=== PATIENT | male | born 1935 | race Caucasian/White ===

== ENCOUNTER 2021-02-04 08:06 | Inpatient (IN) | payer MEDICARE ==
[~2021-02-04] VITALS: Ht 177.8 cm; Wt 79.4 kg
[2021-02-04] MEDS ORDERED: XARELTO10 MG PO (09:07)
[2021-02-04] MEDS ORDERED: PRINIVIL20 MG PO (09:07)
[2021-02-04] MEDS ORDERED: LASIX20 MG PO (09:07)
[2021-02-04] MEDS ORDERED: METOPROLOL SUCC25 MG PO (09:07)
[2021-02-04] MEDS ORDERED: ASPIRIN81 MG PO (09:07)
[2021-02-04 09:09] LABS: BASOPHILS % 0.2 % (0.0-1.0); HEMATOCRIT 42.5 % (38.2-49.6); HEMOGLOBIN 13.7 g/dL (14.0-18.0); LYMPHOCYTES # (AUTO) 0.6 (1.0-3.2); LYMPHOCYTES % 12.2 % (18.0-39.1); MEAN CORPUSCULAR HEMOGLOBIN 27.9 pg (28-32); MEAN CORPUSCULAR HGB CONC 32.2 g/dL (31-35); MEAN CORPUSCULAR VOLUME 86.6 fL (81-99); MONOCYTES # (AUTO) 0.3 (0.2-0.8); MONOCYTES % 6.3 % (4.4-11.3); NEUTROPHILS # (AUTO) 3.8 (2.1-6.9); NEUTROPHILS % 79.6 % (38.7-80.0); PLATELET COUNT 133 x10e3/uL (140-360); RED BLOOD COUNT 4.91 x10e6/uL (4.3-5.7); RED CELL DISTRIBUTION WIDTH 16.1 % (11.7-14.4)
[2021-02-04 09:11] LABS: INR 1.01; PROTHROMBIN TIME 13.5 seconds (11.9-14.5)
[2021-02-04] MEDS ORDERED: METOPROLOL TARTRATE 50 MG TAB PO ONE (09:30)
[2021-02-04] MEDS ORDERED: FUROSEMIDE INJ 10 MG/ML 4 ML VIAL IV ONE (09:30)
[2021-02-04 09:31] LABS: ALBUMIN/GLOBULIN RATIO 0.8 (0.8-2.0); ANION GAP 18.3 mmol/L (8-16); CALCIUM 8.7 mg/dL (8.4-10.2); CREATININE, SERUM 1.55 mg/dL (0.72-1.25); POTASSIUM 4.3 mmol/L (3.5-5.1)
[2021-02-04] MEDS ORDERED: DEXAMETHASONE SOD PHOS 10 MG/1 ML VIAL IV ONE (10:00)
[2021-02-04 12:54] VITALS: BP 149/71
[2021-02-04 12:56] VITALS: BP 149/71
[2021-02-04 12:57] VITALS: BP 149/71
[2021-02-04] MEDS ORDERED: CASIRIVIMAB/IMDEVIMAB 10 ML in SODIUM CHLORIDE 0.9% 100 ML IV ONE (14:45)
[2021-02-04] MEDS ORDERED: REMDESIVIR 200MG 200 MG in SODIUM CHLORIDE 0.9% 100 ML IV ONE (15:30)
[2021-02-04 16:34] VITALS: BP 125/56
[2021-02-04 16:53] LABS: BASOPHILS % 0.2 % (0.0-1.0); HEMOGLOBIN 13.8 g/dL (14.0-18.0); LYMPHOCYTES # (AUTO) 0.3 (1.0-3.2); LYMPHOCYTES % 7.8 % (18.0-39.1); MEAN CORPUSCULAR HEMOGLOBIN 27.9 pg (28-32); MEAN CORPUSCULAR HGB CONC 32.9 g/dL (31-35); MONOCYTES # (AUTO) 0.1 (0.2-0.8); MONOCYTES % 3.2 % (4.4-11.3); NEUTROPHILS # (AUTO) 3.8 (2.1-6.9); PLATELET COUNT 130 x10e3/uL (140-360); RED BLOOD COUNT 4.94 x10e6/uL (4.3-5.7)
[2021-02-04] MEDS ORDERED: METOPROLOL TARTRATE 25 MG TAB PO ONE (17:00)
[2021-02-04 17:17] LABS: ALBUMIN/GLOBULIN RATIO 0.7 (0.8-2.0); ANION GAP 18.6 mmol/L (8-16); CALCIUM 8.7 mg/dL (8.4-10.2); CREATININE, SERUM 1.43 mg/dL (0.72-1.25); POTASSIUM 4.6 mmol/L (3.5-5.1)
[2021-02-04] MEDS: ASCORBIC ACID 500 MG TAB PO SCH (17:47)
[2021-02-04] MEDS: LISINOPRIL 20 MG TAB PO SCH (17:47)
[2021-02-04] MEDS: FUROSEMIDE INJ 10 MG/ML 4 ML VIAL IV SCH (17:47)
[2021-02-04] MEDS: RIVAROXABAN 10 MG TABLET PO SCH (18:09)
[2021-02-04] MEDS ORDERED: METOPROLOL TARTRATE INJ 1 MG/ML VIAL IV PRN (18:15)
[2021-02-04 20:00] VITALS: BP 135/85
[2021-02-04 20:38] LABS: LYMPHOCYTES % (MANUAL) 5 % (19-48); MONOCYTES % (MANUAL) 5 % (3.4-9.0); NEUTROPHILS % (MANUAL) 87 % (40-74); PLATELET ESTIMATE ADEQUATE; PLATELET MORPHOLOGY COMMENT FEW GIANT; RBC MORPHOLOGY COMMENT NORMAL
[2021-02-04 21:10] VITALS: BP 135/85
[2021-02-05] VITALS (8 sets, daily range): BP systolic 119–149; BP diastolic 66–91
[2021-02-05 05:00] LABS: BASOPHILS % 0.2 % (0.0-1.0); HEMATOCRIT 44.6 % (38.2-49.6); HEMOGLOBIN 14.4 g/dL (14.0-18.0); LYMPHOCYTES # (AUTO) 0.6 (1.0-3.2); LYMPHOCYTES % 10.8 % (18.0-39.1); MEAN CORPUSCULAR HGB CONC 32.3 g/dL (31-35); MEAN CORPUSCULAR VOLUME 86.8 fL (81-99); MONOCYTES # (AUTO) 0.4 (0.2-0.8); MONOCYTES % 6.7 % (4.4-11.3); NEUTROPHILS # (AUTO) 4.2 (2.1-6.9); NEUTROPHILS % 80.6 % (38.7-80.0); PLATELET COUNT 154 x10e3/uL (140-360); RED BLOOD COUNT 5.14 x10e6/uL (4.3-5.7); RED CELL DISTRIBUTION WIDTH 16.4 % (11.7-14.4)
[2021-02-05 05:26] LABS: ALBUMIN 2.9 g/dL (3.5-5.0); ALBUMIN/GLOBULIN RATIO 0.6 (0.8-2.0); ANION GAP 20.6 mmol/L (8-16); CALCIUM 8.6 mg/dL (8.4-10.2); CREATININE, SERUM 1.82 mg/dL (0.72-1.25); POTASSIUM 4.6 mmol/L (3.5-5.1)
[2021-02-05] MEDS: BENZONATATE 100 MG CAP PO PRN (06:30)
[2021-02-05] MEDS: FUROSEMIDE INJ 10 MG/ML 4 ML VIAL IV SCH ×2 (09:56→17:06)
[2021-02-05] MEDS: ASCORBIC ACID 500 MG TAB PO SCH ×2 (09:57→17:06)
[2021-02-05] MEDS: ASPIRIN 81 MG CHEW TAB PO SCH (09:57)
[2021-02-05] MEDS: LISINOPRIL 20 MG TAB PO SCH ×2 (09:57→17:06)
[2021-02-05] MEDS: ZINC SULFATE 220 MG CAP PO SCH (09:57)
[2021-02-05] MEDS: METOPROLOL SUCCINATE 25 MG TAB XL PO SCH (09:57)
[2021-02-05] MEDS: DEXAMETHASONE SOD PHOS 10 MG/1 ML VIAL IV SCH (10:17)
[2021-02-05] MEDS: CEFTRIAXONE 2 GM in SODIUM CHLORIDE 0.9% 100 ML IV SCH (10:17)
[2021-02-05] MEDS: REMDESIVIR 100MG 100 MG in SODIUM CHLORIDE 0.9% 100 ML IV SCH (14:05)
[2021-02-05] MEDS: RIVAROXABAN 10 MG TABLET PO SCH (17:06)
[2021-02-06] VITALS (11 sets, daily range): BP systolic 99–149; BP diastolic 62–99
[2021-02-06 04:56] LABS: BASOPHILS % 0.1 % (0.0-1.0); EOSINOPHILS % 0.1 % (0.0-6.0); HEMATOCRIT 42.4 % (38.2-49.6); LYMPHOCYTES # (AUTO) 0.6 (1.0-3.2); LYMPHOCYTES % 6.3 % (18.0-39.1); MEAN CORPUSCULAR HEMOGLOBIN 27.9 pg (28-32); MEAN CORPUSCULAR VOLUME 84.5 fL (81-99); MONOCYTES # (AUTO) 0.5 (0.2-0.8); MONOCYTES % 5.9 % (4.4-11.3); NEUTROPHILS # (AUTO) 7.9 (2.1-6.9); NEUTROPHILS % 86.7 % (38.7-80.0); PLATELET COUNT 177 x10e3/uL (140-360); RED BLOOD COUNT 5.02 x10e6/uL (4.3-5.7); RED CELL DISTRIBUTION WIDTH 16.4 % (11.7-14.4)
[2021-02-06 05:27] LABS: ALBUMIN 2.7 g/dL (3.5-5.0); ALBUMIN/GLOBULIN RATIO 0.6 (0.8-2.0); ANION GAP 19.2 mmol/L (8-16); CALCIUM 8.5 mg/dL (8.4-10.2); CREATININE, SERUM 1.91 mg/dL (0.72-1.25); POTASSIUM 4.2 mmol/L (3.5-5.1)
[2021-02-06] MEDS ORDERED: BREO ELLIPTA 21 EACH INH (05:48)
[2021-02-06] MEDS ORDERED: INCRUSE ELLI62.5 MCG INH (05:48)
[2021-02-06] MEDS: DEXAMETHASONE SOD PHOS 10 MG/1 ML VIAL IV SCH (06:00)
[2021-02-06] MEDS: BENZONATATE 100 MG CAP PO PRN (06:54)
[2021-02-06] MEDS: UMECLIDINIUM BROMIDE 62.5 MCG INH SCH (08:00)
[2021-02-06] MEDS: NON-FORMULARY MEDICATION (Fluticasone/Vilanterol (Breo Ellipta 200-25 Mcg INH) 1 INH) INH SCH (08:00)
[2021-02-06] MEDS: CEFTRIAXONE 2 GM in SODIUM CHLORIDE 0.9% 100 ML IV SCH (08:49)
[2021-02-06] MEDS: LISINOPRIL 20 MG TAB PO SCH ×2 (08:49→17:30)
[2021-02-06] MEDS: ASPIRIN 81 MG CHEW TAB PO SCH (08:49)
[2021-02-06] MEDS: FUROSEMIDE INJ 10 MG/ML 4 ML VIAL IV SCH (08:49)
[2021-02-06] MEDS: ASCORBIC ACID 500 MG TAB PO SCH ×2 (08:50→17:31)
[2021-02-06] MEDS: ZINC SULFATE 220 MG CAP PO SCH (08:50)
[2021-02-06] MEDS: METOPROLOL SUCCINATE 25 MG TAB XL PO SCH ×2 (08:50→17:31)
[2021-02-06] MEDS ORDERED: METOPROLOL TARTRATE INJ 1 MG/ML VIAL IV STA (10:28)
[2021-02-06] MEDS ORDERED: METOPROLOL TARTRATE INJ 1 MG/ML VIAL IV PRN (11:30)
[2021-02-06] MEDS: REMDESIVIR 100MG 100 MG in SODIUM CHLORIDE 0.9% 100 ML IV SCH (14:51)
[2021-02-06] MEDS ORDERED: RIVAROXABAN 10 MG TABLET PO SCH (17:00)
[2021-02-06] MEDS: RIVAROXABAN 15 MG TABLET PO SCH (17:31)
[2021-02-07] VITALS (8 sets, daily range): BP systolic 110–174; BP diastolic 62–98
[2021-02-07] MEDS: UMECLIDINIUM BROMIDE 62.5 MCG INH SCH (05:11)
[2021-02-07] MEDS: NON-FORMULARY MEDICATION (Fluticasone/Vilanterol (Breo Ellipta 200-25 Mcg INH) 1 INH) INH SCH (05:11)
[2021-02-07] MEDS: DEXAMETHASONE SOD PHOS 10 MG/1 ML VIAL IV SCH (05:45)
[2021-02-07 06:08] LABS: BASOPHILS % 0.2 % (0.0-1.0); HEMATOCRIT 44.8 % (38.2-49.6); HEMOGLOBIN 14.5 g/dL (14.0-18.0); LYMPHOCYTES # (AUTO) 0.5 (1.0-3.2); LYMPHOCYTES % 5.5 % (18.0-39.1); MEAN CORPUSCULAR HEMOGLOBIN 27.6 pg (28-32); MEAN CORPUSCULAR HGB CONC 32.4 g/dL (31-35); MEAN CORPUSCULAR VOLUME 85.3 fL (81-99); MONOCYTES # (AUTO) 0.5 (0.2-0.8); MONOCYTES % 5.8 % (4.4-11.3); PLATELET COUNT 225 x10e3/uL (140-360); RED BLOOD COUNT 5.25 x10e6/uL (4.3-5.7); RED CELL DISTRIBUTION WIDTH 16.5 % (11.7-14.4)
[2021-02-07 06:23] LABS: ALBUMIN 2.8 g/dL (3.5-5.0); ALBUMIN/GLOBULIN RATIO 0.6 (0.8-2.0); ANION GAP 18.1 mmol/L (8-16); CALCIUM 9.2 mg/dL (8.4-10.2); CREATININE, SERUM 1.77 mg/dL (0.72-1.25); MAGNESIUM 2.6 MG/DL (1.3-2.1); POTASSIUM 4.1 mmol/L (3.5-5.1)
[2021-02-07] MEDS: ASPIRIN 81 MG CHEW TAB PO SCH (09:26)
[2021-02-07] MEDS: CEFTRIAXONE 2 GM in SODIUM CHLORIDE 0.9% 100 ML IV SCH (09:26)
[2021-02-07] MEDS: LISINOPRIL 20 MG TAB PO SCH ×3 (09:26→17:01)
[2021-02-07] MEDS: ZINC SULFATE 220 MG CAP PO SCH (09:27)
[2021-02-07] MEDS: METOPROLOL SUCCINATE 25 MG TAB XL PO SCH ×2 (09:27→17:01)
[2021-02-07] MEDS: ASCORBIC ACID 500 MG TAB PO SCH ×2 (09:27→17:01)
[2021-02-07] MEDS: REMDESIVIR 100MG 100 MG in SODIUM CHLORIDE 0.9% 100 ML IV SCH (12:58)
[2021-02-07] MEDS ORDERED: AMIODARONE HCL 200 MG TAB PO NR (14:45)
[2021-02-07] MEDS ORDERED: AMIODARONE HCL 150 MG/100 ML BAG IV ONE (15:00)
[2021-02-07] MEDS: RIVAROXABAN 15 MG TABLET PO SCH (17:01)
[2021-02-07] MEDS: BENZONATATE 100 MG CAP PO PRN (22:04)
[2021-02-08 01:35] VITALS: BP 106/79
[2021-02-08] MEDS: BENZONATATE 100 MG CAP PO PRN ×3 (04:04→16:10)
[2021-02-08] MEDS: NON-FORMULARY MEDICATION (Fluticasone/Vilanterol (Breo Ellipta 200-25 Mcg INH) 1 INH) INH SCH (05:21)
[2021-02-08] MEDS: DEXAMETHASONE SOD PHOS 10 MG/1 ML VIAL IV SCH (05:21)
[2021-02-08] MEDS: UMECLIDINIUM BROMIDE 62.5 MCG INH SCH (05:21)
[2021-02-08 05:45] VITALS: BP 144/92
[2021-02-08 08:41] VITALS: BP 128/89
[2021-02-08] MEDS: CEFTRIAXONE 2 GM in SODIUM CHLORIDE 0.9% 100 ML IV SCH (09:12)
[2021-02-08] MEDS: ASPIRIN 81 MG CHEW TAB PO SCH (09:12)
[2021-02-08] MEDS: AMIODARONE HCL 200 MG TAB PO SCH (09:12)
[2021-02-08] MEDS: METOPROLOL SUCCINATE 25 MG TAB XL PO SCH ×2 (09:13→16:09)
[2021-02-08] MEDS: ZINC SULFATE 220 MG CAP PO SCH (09:13)
[2021-02-08] MEDS: LISINOPRIL 20 MG TAB PO SCH ×2 (09:13→16:09)
[2021-02-08] MEDS: ASCORBIC ACID 500 MG TAB PO SCH ×2 (09:13→16:08)
[2021-02-08 11:24] VITALS: BP 128/89
[2021-02-08] MEDS: REMDESIVIR 100MG 100 MG in SODIUM CHLORIDE 0.9% 100 ML IV SCH (14:06)
[2021-02-08] MEDS: RIVAROXABAN 15 MG TABLET PO SCH (16:08)
[2021-02-08 19:00] VITALS: BP 140/70
[2021-02-08 21:27] VITALS: BP 140/70
[2021-02-09] VITALS (8 sets, daily range): BP systolic 129–147; BP diastolic 79–97
[2021-02-09] MEDS: NON-FORMULARY MEDICATION (Fluticasone/Vilanterol (Breo Ellipta 200-25 Mcg INH) 1 INH) INH SCH ×2 (02:47→17:01)
[2021-02-09] MEDS: UMECLIDINIUM BROMIDE 62.5 MCG INH SCH ×2 (02:48→17:01)
[2021-02-09] MEDS: DEXAMETHASONE SOD PHOS 10 MG/1 ML VIAL IV SCH (05:12)
[2021-02-09] MEDS: AMIODARONE HCL 200 MG TAB PO SCH (08:35)
[2021-02-09] MEDS: ASPIRIN 81 MG CHEW TAB PO SCH (08:35)
[2021-02-09] MEDS: LISINOPRIL 20 MG TAB PO SCH ×2 (08:36→17:00)
[2021-02-09] MEDS: METOPROLOL SUCCINATE 25 MG TAB XL PO SCH ×2 (08:36→17:00)
[2021-02-09] MEDS: ASCORBIC ACID 500 MG TAB PO SCH ×2 (08:36→17:00)
[2021-02-09] MEDS: ZINC SULFATE 220 MG CAP PO SCH (08:36)
[2021-02-09] MEDS: LIDOCAINE 4% PATCH TP SCH (11:30)
[2021-02-09] MEDS: ACETAMINOPHEN 325 MG TAB PO PRN ×2 (11:30→21:02)
[2021-02-09] MEDS: VANCOMYCIN HCL 125 MG CAPSULE PO SCH ×3 (12:00→23:52)
[2021-02-09] MEDS: RIVAROXABAN 15 MG TABLET PO SCH (17:00)
[2021-02-09] MEDS: CHOLESTYRAMINE 4 GM PACKET PO SCH (17:01)
[2021-02-09] MEDS: BENZONATATE 100 MG CAP PO PRN (17:08)
[2021-02-10] VITALS (9 sets, daily range): BP systolic 123–150; BP diastolic 76–97
[2021-02-10] MEDS: VANCOMYCIN HCL 125 MG CAPSULE PO SCH (05:47)
[2021-02-10] MEDS: DEXAMETHASONE SOD PHOS 10 MG/1 ML VIAL IV SCH (05:47)
[2021-02-10 06:12] LABS: BASOPHILS % 0.3 % (0.0-1.0); HEMATOCRIT 44.7 % (38.2-49.6); HEMOGLOBIN 14.1 g/dL (14.0-18.0); LYMPHOCYTES # (AUTO) 0.8 (1.0-3.2); LYMPHOCYTES % 5.2 % (18.0-39.1); MEAN CORPUSCULAR HEMOGLOBIN 27.9 pg (28-32); MEAN CORPUSCULAR HGB CONC 31.5 g/dL (31-35); MEAN CORPUSCULAR VOLUME 88.5 fL (81-99); MONOCYTES # (AUTO) 1.1 (0.2-0.8); MONOCYTES % 7.3 % (4.4-11.3); NEUTROPHILS # (AUTO) 12.9 (2.1-6.9); NEUTROPHILS % 84.4 % (38.7-80.0); PLATELET COUNT 290 x10e3/uL (140-360); RED BLOOD COUNT 5.05 x10e6/uL (4.3-5.7); RED CELL DISTRIBUTION WIDTH 16.4 % (11.7-14.4)
[2021-02-10 06:39] LABS: ALBUMIN 2.8 g/dL (3.5-5.0); CALCIUM 8.8 mg/dL (8.4-10.2); CREATININE, SERUM 1.43 mg/dL (0.72-1.25)
[2021-02-10] MEDS: ASPIRIN 81 MG CHEW TAB PO SCH (08:37)
[2021-02-10] MEDS: AMIODARONE HCL 200 MG TAB PO SCH (08:37)
[2021-02-10] MEDS: LISINOPRIL 20 MG TAB PO SCH ×2 (08:38→17:12)
[2021-02-10] MEDS: ASCORBIC ACID 500 MG TAB PO SCH ×2 (08:39→17:13)
[2021-02-10] MEDS: METOPROLOL SUCCINATE 25 MG TAB XL PO SCH ×2 (08:39→17:13)
[2021-02-10] MEDS: ZINC SULFATE 220 MG CAP PO SCH (08:39)
[2021-02-10] MEDS: CHOLESTYRAMINE 4 GM PACKET PO SCH ×2 (08:39→17:13)
[2021-02-10] MEDS: BENZONATATE 100 MG CAP PO PRN (08:39)
[2021-02-10] MEDS: LIDOCAINE 4% PATCH TP SCH (08:39)
[2021-02-10] MEDS: RIVAROXABAN 15 MG TABLET PO SCH (17:13)
[2021-02-11 04:00] VITALS: BP 111/87
[2021-02-11 05:06] LABS: BASOPHILS % 0.2 % (0.0-1.0); EOSINOPHILS % 0.1 % (0.0-6.0); HEMATOCRIT 45.7 % (38.2-49.6); HEMOGLOBIN 14.8 g/dL (14.0-18.0); LYMPHOCYTES # (AUTO) 1.1 (1.0-3.2); LYMPHOCYTES % 6.6 % (18.0-39.1); MEAN CORPUSCULAR HEMOGLOBIN 28.1 pg (28-32); MEAN CORPUSCULAR HGB CONC 32.4 g/dL (31-35); MEAN CORPUSCULAR VOLUME 86.7 fL (81-99); NEUTROPHILS % 83.9 % (38.7-80.0); PLATELET COUNT 337 x10e3/uL (140-360); RED BLOOD COUNT 5.27 x10e6/uL (4.3-5.7); RED CELL DISTRIBUTION WIDTH 16.1 % (11.7-14.4)
[2021-02-11 05:20] LABS: ANION GAP 14.7 mmol/L (8-16); CALCIUM 8.8 mg/dL (8.4-10.2); CREATININE, SERUM 1.36 mg/dL (0.72-1.25); POTASSIUM 4.7 mmol/L (3.5-5.1)
[2021-02-11] MEDS: DEXAMETHASONE SOD PHOS 10 MG/1 ML VIAL IV SCH (05:22)
[2021-02-11] MEDS: NON-FORMULARY MEDICATION (Fluticasone/Vilanterol (Breo Ellipta 200-25 Mcg INH) 1 INH) INH SCH (06:00)
[2021-02-11] MEDS: UMECLIDINIUM BROMIDE 62.5 MCG INH SCH (06:00)
[2021-02-11] MEDS ORDERED: CEFEPIME 2 GM in SODIUM CHLORIDE 0.9% 100 ML IV SCH (09:00)
[2021-02-11] MEDS: LISINOPRIL 20 MG TAB PO SCH ×2 (09:11→17:21)
[2021-02-11] MEDS: ASPIRIN 81 MG CHEW TAB PO SCH (09:11)
[2021-02-11] MEDS: AMIODARONE HCL 200 MG TAB PO SCH (09:11)
[2021-02-11] MEDS: ZINC SULFATE 220 MG CAP PO SCH (09:12)
[2021-02-11] MEDS: METOPROLOL SUCCINATE 25 MG TAB XL PO SCH ×2 (09:12→17:22)
[2021-02-11] MEDS: LIDOCAINE 4% PATCH TP SCH (09:12)
[2021-02-11] MEDS: ASCORBIC ACID 500 MG TAB PO SCH ×2 (09:12→17:22)
[2021-02-11] MEDS: BENZONATATE 100 MG CAP PO PRN (09:14)
[2021-02-11 09:16] VITALS: BP 122/57
[2021-02-11] MEDS: CHOLESTYRAMINE 4 GM PACKET PO SCH ×2 (10:03→17:22)
[2021-02-11 11:42] VITALS: BP 116/77
[2021-02-11 16:13] VITALS: BP 121/78
[2021-02-11] MEDS ORDERED: DRONABINOL 2.5MG PO SCH (16:30)
[2021-02-11] MEDS: RIVAROXABAN 15 MG TABLET PO SCH (17:22)
[2021-02-11 19:16] VITALS: BP 119/87
[2021-02-11 20:00] VITALS: BP 119/87
== END 2021-02-11 23:13 | DRG 177 ==
LOC: ER 08:15 → ERHOLD 09:44 → IMCU 12:00
PROVIDERS: ADMIT Family Medicine; ATTEND Family Medicine
PROC: 8E0ZXY6 Isolation (ICD-10-PCS; principal; 2021-02-05)
PROC: XW033E5 Introduction of Remdesivir Anti-infective into Peripheral Vein, Percutaneous Approach, New Technology Group 5 (ICD-10-PCS; 2021-02-05)
DX: U07.1 COVID-19 (principal); J12.82 Pneumonia due to coronavirus disease 2019; J96.01 Acute respiratory failure with hypoxia; I50.33 Acute on chronic diastolic (congestive) heart failure; I50.43 Acute on chronic combined systolic (congestive) and diastolic (congestive) heart failure; I13.0 Hypertensive heart and chronic kidney disease with heart failure and stage 1 through stage 4 chronic kidney disease, or unspecified chronic kidney disease; I47.2 Ventricular tachycardia; Z79.01 Long term (current) use of anticoagulants; I25.10 Atherosclerotic heart disease of native coronary artery without angina pectoris; I11.0 Hypertensive heart disease with heart failure; Z95.1 Presence of aortocoronary bypass graft; N18.30 Chronic kidney disease, stage 3 unspecified; I48.0 Paroxysmal atrial fibrillation; R19.7 Diarrhea, unspecified
CPT/HCPCS: 36415; 51700; 71045; 80048; 80053; 82040; 83735; 83880; 84443; 84484; 85025; 85610; 87493; 93005; 93306; 97139; 99284; J0692; J0696; J1100; J1940; J7050; U0002

== ENCOUNTER 2021-02-16 14:44 | Inpatient (IN) | payer MEDICARE ==
[~2021-02-16] VITALS: Ht 177.8 cm; Wt 70.4 kg
[~2021-02-16 14:44] MED LIST: ASPIRIN81 MG PO; BREO ELLIPTA 21 EACH INH; INCRUSE ELLI62.5 MCG INH; LASIX20 MG PO; METOPROLOL SUCC25 MG PO; PRINIVIL20 MG PO; XARELTO10 MG PO
[2021-02-16 15:10] LABS: BASOPHILS # (AUTO) 0.1 (0.0-0.1); BASOPHILS % 0.4 % (0.0-1.0); EOSINOPHILS % 0.1 % (0.0-6.0); HEMATOCRIT 47.5 % (38.2-49.6); HEMOGLOBIN 14.7 g/dL (14.0-18.0); LYMPHOCYTES # (AUTO) 1.2 (1.0-3.2); MEAN CORPUSCULAR HEMOGLOBIN 28.1 pg (28-32); MEAN CORPUSCULAR HGB CONC 30.9 g/dL (31-35); MEAN CORPUSCULAR VOLUME 90.8 fL (81-99); MONOCYTES # (AUTO) 2.1 (0.2-0.8); MONOCYTES % 7.1 % (4.4-11.3); NEUTROPHILS # (AUTO) 25.3 (2.1-6.9); NEUTROPHILS % 84.7 % (38.7-80.0); PLATELET COUNT 293 x10e3/uL (140-360); RED BLOOD COUNT 5.23 x10e6/uL (4.3-5.7); RED CELL DISTRIBUTION WIDTH 16.1 % (11.7-14.4)
[2021-02-16 15:20] LABS: INR 0.97; PROTHROMBIN TIME 13.1 seconds (11.9-14.5)
[2021-02-16 15:21] LABS: PARTIAL THROMBOPLASTIN TIME 27.2 seconds (23.8-35.5)
[2021-02-16 15:26] LABS: ALBUMIN 2.9 g/dL (3.5-5.0); ALBUMIN/GLOBULIN RATIO 0.8 (0.8-2.0); ANION GAP 12.8 mmol/L (8-16); CALCIUM 9.1 mg/dL (8.4-10.2); CREATININE, SERUM 1.58 mg/dL (0.72-1.25)
[2021-02-16 15:28] LABS: POTASSIUM 5.8 mmol/L (3.5-5.1)
[2021-02-16 15:33] LABS: CREATINE KINASE MB 1.4 ng/mL (0-5.0)
[2021-02-16] MEDS ORDERED: SODIUM CHLORIDE 0.9% 1000ML 1,000 ML IV STA (16:02)
[2021-02-16] MEDS ORDERED: ALBUTEROL SULF 0.083% NEB SOLN 3 ML NEB NEB STA (16:02)
[2021-02-16] MEDS ORDERED: Vancomycin IV 1 GM in SODIUM CHLORIDE 0.9% 250ML 250 ML IV STA (16:06)
[2021-02-16] MEDS ORDERED: PIPERACILLIN/TAZOBACTAM 3.375 GM in SODIUM CHLORIDE 0.9% 50ML 50 ML IV STA (16:06)
[2021-02-16] MEDS ORDERED: INSULIN REGULAR, HUMAN 100 UNIT/1 ML IV ONE (16:15)
[2021-02-16] MEDS ORDERED: DEXTROSE 50% SYRINGE 50 ML IV ONE (16:15)
[2021-02-16] MEDS ORDERED: CEFEPIME 1 GM in SODIUM CHLORIDE 0.9% 50ML 50 ML IV ONE (16:30)
[2021-02-16] MEDS ORDERED: CALCIUM GLUCONATE 10% INJ 4.65 MEQ in SODIUM CHLORIDE 0.9% 50ML 50 ML IV ONE (16:30)
[2021-02-16 17:02] LABS: LYMPHOCYTES % (MANUAL) 4 % (19-48); METAMYELOCYTES % (MANUAL) 1 % (0-0); MONOCYTES % (MANUAL) 9 % (3.4-9.0); NEUTROPHILS % (MANUAL) 86 % (40-74)
[2021-02-16 17:03] LABS: PLATELET ESTIMATE ADEQUATE; RBC MORPHOLOGY COMMENT NORMAL
[2021-02-16 17:04] LABS: PLATELET MORPHOLOGY COMMENT NORMAL
[2021-02-16] MEDS ORDERED: AMIODARONE 900MG 500 ML IV STA (17:08)
[2021-02-16] MEDS ORDERED: AMIODARONE HCL 150 MG/100 ML BAG IV ONE (17:15)
[2021-02-16 17:29] LABS: CLARITY,URINE CLOUDY (CLEAR); COLOR,URINE PINK (YELLOW); KETONES,URINE NEGATIVE (NEGATIVE); LEUKOCYTE ESTERASE ,URINE TRACE (NEGATIVE); NITRITE,URINE NEGATIVE (NEGATIVE); PROTEIN,URINE DIPSTICK 1+ (NEGATIVE); URINE UROBILINOGEN 0.2 mg/dL (0.2 - 1)
[2021-02-16 17:40] LABS: BACTERIA,URINE MODERATE /HPF; RBC,URINE >50 /HPF (0-5); WBC,URINE (MAN) 0-5 /HPF (0-5)
[2021-02-16 21:00] VITALS: BP 110/63
[2021-02-16] MEDS ORDERED: AMIODARONE HCL100 MG PO (23:03)
[2021-02-16] MEDS ORDERED: INCRUSE ELLI62.5 MCG INH (23:03)
[2021-02-16] MEDS ORDERED: DEXAMETHASONE4 MG PO (23:03)
[2021-02-16] MEDS ORDERED: TYLENOL325 MG PO (23:03)
[2021-02-16] MEDS ORDERED: LISINOPRIL10 MG PO (23:03)
[2021-02-16] MEDS ORDERED: ASPIRIN CHEW81 MG PO (23:03)
[2021-02-16] MEDS ORDERED: ZINC SULFATE50 MG (23:03)
[2021-02-16] MEDS ORDERED: BENZONATATE200 MG PO (23:03)
[2021-02-16] MEDS ORDERED: XARELTO10 MG PO (23:03)
[2021-02-16] MEDS ORDERED: VANCOCIN HCL250 MG PO (23:03)
[2021-02-16] MEDS ORDERED: BREO ELLIPTA 11 EACH INH (23:03)
[2021-02-16] MEDS ORDERED: DEXAMETHASONE6 MG (23:03)
[2021-02-16] MEDS ORDERED: METOPROLOL SUCC25 MG PO (23:03)
[2021-02-16] MEDS ORDERED: VITAMIN C500 MG PO (23:03)
[2021-02-16] MEDS ORDERED: LIDOPATCH1 EACH TOP (23:03)
[2021-02-16] MEDS ORDERED: REMERON15 MG PO (23:03)
[2021-02-16] MEDS ORDERED: CHOLESTYRAMINE P4 GM PO (23:03)
[2021-02-16 23:50] VITALS: BP 126/63
[2021-02-17] VITALS (8 sets, daily range): BP systolic 125–133; BP diastolic 62–74
[2021-02-17 04:49] LABS: BASOPHILS # (AUTO) 0.1 (0.0-0.1); BASOPHILS % 0.4 % (0.0-1.0); EOSINOPHILS # (AUTO) 0.1 (0.0-0.4); EOSINOPHILS % 0.3 % (0.0-6.0); HEMATOCRIT 44.9 % (38.2-49.6); LYMPHOCYTES # (AUTO) 1.1 (1.0-3.2); LYMPHOCYTES % 4.5 % (18.0-39.1); MEAN CORPUSCULAR HEMOGLOBIN 28.3 pg (28-32); MEAN CORPUSCULAR HGB CONC 31.2 g/dL (31-35); MEAN CORPUSCULAR VOLUME 90.7 fL (81-99); MONOCYTES # (AUTO) 1.5 (0.2-0.8); MONOCYTES % 6.5 % (4.4-11.3); PLATELET COUNT 246 x10e3/uL (140-360); RED BLOOD COUNT 4.95 x10e6/uL (4.3-5.7); RED CELL DISTRIBUTION WIDTH 15.9 % (11.7-14.4)
[2021-02-17 05:08] LABS: ANION GAP 11.9 mmol/L (8-16); CALCIUM 8.7 mg/dL (8.4-10.2); CREATININE, SERUM 1.39 mg/dL (0.72-1.25); MAGNESIUM 2.3 MG/DL (1.3-2.1); PHOSPHORUS 3.4 MG/DL (2.3-4.7)
[2021-02-17 05:14] LABS: POTASSIUM 5.9 mmol/L (3.5-5.1)
[2021-02-17 06:04] LABS: CREATINE KINASE MB 1.8 ng/mL (0-5.0)
[2021-02-17] MEDS: NON-FORMULARY MEDICATION (Fluticasone/Vilanterol (Breo Ellipta 100-25 Mcg INH) 1 INH) INH SCH (09:00)
[2021-02-17] MEDS: CEFEPIME 1 GM in SODIUM CHLORIDE 0.9% 50ML 50 ML IV SCH (10:20)
[2021-02-17] MEDS: FUROSEMIDE 20 MG TAB PO SCH (10:20)
[2021-02-17] MEDS: AMIODARONE HCL 200 MG TAB PO SCH (10:20)
[2021-02-17] MEDS: RIVAROXABAN 15 MG TABLET PO SCH (10:21)
[2021-02-17] MEDS: LISINOPRIL 2.5 MG TAB PO SCH (10:21)
[2021-02-17] MEDS: METOPROLOL TARTRATE 25 MG TAB PO SCH ×2 (10:21→21:10)
[2021-02-17] MEDS: MULTIVITAMINS/MINERALS TAB PO SCH (10:21)
[2021-02-17] MEDS: LACTOBACILLUS ACIDOPHILUS CAPSULE PO SCH (10:21)
[2021-02-17] MEDS: FAMOTIDINE 20 MG TAB PO SCH (10:21)
[2021-02-17] MEDS: CHOLESTYRAMINE 4 GM PACKET PO SCH ×2 (10:22→16:32)
[2021-02-17] MEDS: Vancomycin IV 1 GM in SODIUM CHLORIDE 0.9% 250ML 250 ML IV SCH (10:22)
[2021-02-17 17:57] LABS: CREATINE KINASE MB 1.8 ng/mL (0-5.0)
[2021-02-17 18:10] LABS: ANION GAP 12.8 mmol/L (8-16); CALCIUM 8.3 mg/dL (8.4-10.2); CREATININE, SERUM 1.52 mg/dL (0.72-1.25)
[2021-02-17 18:13] LABS: POTASSIUM 5.8 mmol/L (3.5-5.1)
[2021-02-18] VITALS (8 sets, daily range): BP systolic 109–149; BP diastolic 63–74
[2021-02-18] MEDS: NON-FORMULARY MEDICATION (Fluticasone/Vilanterol (Breo Ellipta 100-25 Mcg INH) 1 INH) INH SCH (05:34)
[2021-02-18] MEDS: CEFEPIME 1 GM in SODIUM CHLORIDE 0.9% 50ML 50 ML IV SCH (09:43)
[2021-02-18] MEDS: AMIODARONE HCL 200 MG TAB PO SCH (09:43)
[2021-02-18] MEDS: FUROSEMIDE 20 MG TAB PO SCH (09:43)
[2021-02-18] MEDS: FAMOTIDINE 20 MG TAB PO SCH (09:44)
[2021-02-18] MEDS: LACTOBACILLUS ACIDOPHILUS CAPSULE PO SCH (09:44)
[2021-02-18] MEDS: MULTIVITAMINS/MINERALS TAB PO SCH (09:44)
[2021-02-18] MEDS: LISINOPRIL 2.5 MG TAB PO SCH (09:44)
[2021-02-18] MEDS: CHOLESTYRAMINE 4 GM PACKET PO SCH ×2 (09:44→16:18)
[2021-02-18] MEDS: RIVAROXABAN 15 MG TABLET PO SCH (09:44)
[2021-02-18] MEDS: METOPROLOL TARTRATE 25 MG TAB PO SCH ×2 (09:44→20:58)
[2021-02-18] MEDS: Vancomycin IV 1 GM in SODIUM CHLORIDE 0.9% 250ML 250 ML IV SCH (10:13)
[2021-02-18 10:31] LABS: BASOPHILS % 0.2 % (0.0-1.0); EOSINOPHILS # (AUTO) 0.2 (0.0-0.4); HEMATOCRIT 41.2 % (38.2-49.6); HEMOGLOBIN 13.1 g/dL (14.0-18.0); LYMPHOCYTES # (AUTO) 0.9 (1.0-3.2); MEAN CORPUSCULAR HEMOGLOBIN 28.5 pg (28-32); MEAN CORPUSCULAR HGB CONC 31.8 g/dL (31-35); MEAN CORPUSCULAR VOLUME 89.6 fL (81-99); MONOCYTES # (AUTO) 1.2 (0.2-0.8); NEUTROPHILS # (AUTO) 14.4 (2.1-6.9); NEUTROPHILS % 82.4 % (38.7-80.0); PLATELET COUNT 274 x10e3/uL (140-360); RED CELL DISTRIBUTION WIDTH 15.5 % (11.7-14.4)
[2021-02-18 10:56] LABS: ANION GAP 10.5 mmol/L (8-16); CALCIUM 8.5 mg/dL (8.4-10.2); CREATININE, SERUM 1.6 mg/dL (0.72-1.25); POTASSIUM 5.5 mmol/L (3.5-5.1)
[2021-02-19 00:28] VITALS: BP 137/88
[2021-02-19 04:51] VITALS: BP 139/68
[2021-02-19] MEDS: NON-FORMULARY MEDICATION (Fluticasone/Vilanterol (Breo Ellipta 100-25 Mcg INH) 1 INH) INH SCH (06:00)
[2021-02-19] MEDS ORDERED: CEFUROXIME250 MG PO (07:15)
[2021-02-19 07:17] LABS: BASOPHILS # (AUTO) 0.1 (0.0-0.1); BASOPHILS % 0.3 % (0.0-1.0); EOSINOPHILS # (AUTO) 0.2 (0.0-0.4); EOSINOPHILS % 1.5 % (0.0-6.0); HEMATOCRIT 41.3 % (38.2-49.6); HEMOGLOBIN 12.9 g/dL (14.0-18.0); LYMPHOCYTES # (AUTO) 0.9 (1.0-3.2); LYMPHOCYTES % 5.8 % (18.0-39.1); MEAN CORPUSCULAR HEMOGLOBIN 28.3 pg (28-32); MEAN CORPUSCULAR HGB CONC 31.2 g/dL (31-35); MEAN CORPUSCULAR VOLUME 90.6 fL (81-99); MONOCYTES # (AUTO) 1.1 (0.2-0.8); MONOCYTES % 7.1 % (4.4-11.3); NEUTROPHILS # (AUTO) 12.6 (2.1-6.9); NEUTROPHILS % 80.7 % (38.7-80.0); PLATELET COUNT 254 x10e3/uL (140-360); RED BLOOD COUNT 4.56 x10e6/uL (4.3-5.7); RED CELL DISTRIBUTION WIDTH 15.6 % (11.7-14.4)
[2021-02-19 07:37] LABS: CALCIUM 8.3 mg/dL (8.4-10.2); CREATININE, SERUM 1.57 mg/dL (0.72-1.25)
[2021-02-19 08:16] VITALS: BP 132/77
[2021-02-19] MEDS: METOPROLOL TARTRATE 25 MG TAB PO SCH (08:25)
[2021-02-19] MEDS: FAMOTIDINE 20 MG TAB PO SCH (08:25)
[2021-02-19] MEDS: FUROSEMIDE 20 MG TAB PO SCH (08:25)
[2021-02-19] MEDS: CEFEPIME 1 GM in SODIUM CHLORIDE 0.9% 50ML 50 ML IV SCH (08:25)
[2021-02-19] MEDS: LACTOBACILLUS ACIDOPHILUS CAPSULE PO SCH (08:25)
[2021-02-19] MEDS: MULTIVITAMINS/MINERALS TAB PO SCH (08:25)
[2021-02-19] MEDS: RIVAROXABAN 15 MG TABLET PO SCH (08:25)
[2021-02-19] MEDS: AMIODARONE HCL 200 MG TAB PO SCH (08:27)
[2021-02-19 09:44] VITALS: BP 132/77
[2021-02-19] MEDS: Vancomycin IV 1 GM in SODIUM CHLORIDE 0.9% 250ML 250 ML IV SCH (10:59)
[2021-02-19 11:47] VITALS: BP 121/50
[2021-02-19 13:17] LABS: BASOPHILS # (AUTO) 0.1 (0.0-0.1); BASOPHILS % 0.3 % (0.0-1.0); EOSINOPHILS # (AUTO) 0.2 (0.0-0.4); EOSINOPHILS % 1.1 % (0.0-6.0); HEMATOCRIT 43.4 % (38.2-49.6); HEMOGLOBIN 13.4 g/dL (14.0-18.0); LYMPHOCYTES # (AUTO) 0.9 (1.0-3.2); LYMPHOCYTES % 4.8 % (18.0-39.1); MEAN CORPUSCULAR HEMOGLOBIN 28.4 pg (28-32); MEAN CORPUSCULAR HGB CONC 30.9 g/dL (31-35); MEAN CORPUSCULAR VOLUME 91.9 fL (81-99); MONOCYTES # (AUTO) 1.4 (0.2-0.8); MONOCYTES % 7.8 % (4.4-11.3); NEUTROPHILS # (AUTO) 14.6 (2.1-6.9); NEUTROPHILS % 82.8 % (38.7-80.0); PLATELET COUNT 230 x10e3/uL (140-360); RED BLOOD COUNT 4.72 x10e6/uL (4.3-5.7); RED CELL DISTRIBUTION WIDTH 15.6 % (11.7-14.4)
[2021-02-19 13:33] LABS: ANION GAP 11.2 mmol/L (8-16); CALCIUM 8.5 mg/dL (8.4-10.2); CREATININE, SERUM 1.44 mg/dL (0.72-1.25); POTASSIUM 5.2 mmol/L (3.5-5.1)
[2021-02-19 16:18] VITALS: BP 122/66
== END 2021-02-19 16:59 | DRG 872 ==
LOC: ER 14:53 → ERHOLD 16:52 → IMCU 21:27
PROVIDERS: ADMIT Internal Medicine; ATTEND Internal Medicine
DX: A41.9 Sepsis, unspecified organism (principal); E87.2 Acidosis; N39.0 Urinary tract infection, site not specified; I13.0 Hypertensive heart and chronic kidney disease with heart failure and stage 1 through stage 4 chronic kidney disease, or unspecified chronic kidney disease; I50.22 Chronic systolic (congestive) heart failure; E11.22 Type 2 diabetes mellitus with diabetic chronic kidney disease; N18.30 Chronic kidney disease, stage 3 unspecified; I48.91 Unspecified atrial fibrillation; E87.5 Hyperkalemia; Z79.899 Other long term (current) drug therapy; Z86.16 Personal history of COVID-19; Z87.01 Personal history of pneumonia (recurrent); Z79.82 Long term (current) use of aspirin
CPT/HCPCS: 36415; 51700; 71045; 80048; 80053; 80202; 81001; 82550; 82553; 83605; 83735; 83880; 84100; 84484; 85025; 85610; 85730; 87040; 87070; 87086; 87186; 87205; 93005; 97139; 99284; J0610; J0692; J1817; J2543; J3370; J7030; J7050; J7799; U0002

== ENCOUNTER 2021-02-24 00:31 | Observation (INO) | payer MEDICARE ==
[~2021-02-24] VITALS: Ht 177.8 cm; Wt 70.3 kg
[2021-02-24] VITALS (7 sets, daily range): BP systolic 106–136; BP diastolic 57–84
[~2021-02-24 00:31] MED LIST changes: +AMIODARONE HCL100 MG PO; +ASPIRIN CHEW81 MG PO; +BENZONATATE200 MG PO; +BREO ELLIPTA 11 EACH INH; +CEFUROXIME250 MG PO; +CHOLESTYRAMINE P4 GM PO; +DEXAMETHASONE4 MG PO; +DEXAMETHASONE6 MG; +LIDOPATCH1 EACH TOP; +LISINOPRIL10 MG PO; +REMERON15 MG PO; +TYLENOL325 MG PO; +VANCOCIN HCL250 MG PO; +VITAMIN C500 MG PO; +ZINC SULFATE50 MG
[2021-02-24 00:58] LABS: BASOPHILS # (AUTO) 0.1 (0.0-0.1); BASOPHILS % 0.5 % (0.0-1.0); EOSINOPHILS # (AUTO) 0.3 (0.0-0.4); EOSINOPHILS % 2.1 % (0.0-6.0); HEMATOCRIT 40.5 % (38.2-49.6); HEMOGLOBIN 12.8 g/dL (14.0-18.0); LYMPHOCYTES # (AUTO) 1.3 (1.0-3.2); LYMPHOCYTES % 8.6 % (18.0-39.1); MEAN CORPUSCULAR HEMOGLOBIN 28.3 pg (28-32); MEAN CORPUSCULAR HGB CONC 31.6 g/dL (31-35); MEAN CORPUSCULAR VOLUME 89.6 fL (81-99); MONOCYTES % 6.8 % (4.4-11.3); NEUTROPHILS # (AUTO) 11.5 (2.1-6.9); NEUTROPHILS % 78.7 % (38.7-80.0); PLATELET COUNT 161 x10e3/uL (140-360); RED BLOOD COUNT 4.52 x10e6/uL (4.3-5.7); RED CELL DISTRIBUTION WIDTH 15.8 % (11.7-14.4)
[2021-02-24 01:17] LABS: ALBUMIN 2.6 g/dL (3.5-5.0); ALBUMIN/GLOBULIN RATIO 0.7 (0.8-2.0); ANION GAP 10.9 mmol/L (8-16); CALCIUM 8.9 mg/dL (8.4-10.2); CREATININE, SERUM 1.22 mg/dL (0.72-1.25); POTASSIUM 5.9 mmol/L (3.5-5.1)
[2021-02-24] MEDS ORDERED: SODIUM BICARBONATE 8.4% INJ 50 ML SYR IV STA (01:33)
[2021-02-24] MEDS ORDERED: SOD POLYSTYRENE SULFONATE SUSP 15 GM/60 ML BTL PO ONE (01:45)
[2021-02-24] MEDS ORDERED: SODIUM CHLORIDE 0.9% 1000ML 1,000 ML IV SCH (01:45)
[2021-02-24] MEDS ORDERED: CALCIUM GLUCONATE 10% INJ 9.3 MEQ in SODIUM CHLORIDE 0.9% 100 ML 100 ML IV ONE (01:45)
[2021-02-24] MEDS ORDERED: FUROSEMIDE INJ 10 MG/ML 2 ML VIAL IV ONE (01:45)
[2021-02-24] MEDS: SODIUM CHLORIDE 0.9% 1000ML 1,000 ML IV SCH ×4 (01:51→16:34)
[2021-02-24] MEDS ORDERED: CALCIUM GLUCONATE 10% INJ 0.465 MEQ/ML VIAL ONE (02:19)
[2021-02-24] MEDS ORDERED: SODIUM CHLORIDE 0.9% 100 ML ONE (02:22)
[2021-02-24 07:01] LABS: BASOPHILS # (AUTO) 0.1 (0.0-0.1); BASOPHILS % 0.5 % (0.0-1.0); EOSINOPHILS # (AUTO) 0.3 (0.0-0.4); EOSINOPHILS % 2.2 % (0.0-6.0); HEMATOCRIT 38.4 % (38.2-49.6); LYMPHOCYTES # (AUTO) 0.9 (1.0-3.2); LYMPHOCYTES % 7.5 % (18.0-39.1); MEAN CORPUSCULAR HEMOGLOBIN 28.2 pg (28-32); MEAN CORPUSCULAR HGB CONC 31.3 g/dL (31-35); MEAN CORPUSCULAR VOLUME 90.4 fL (81-99); MONOCYTES # (AUTO) 0.8 (0.2-0.8); MONOCYTES % 6.2 % (4.4-11.3); PLATELET COUNT 152 x10e3/uL (140-360); RED BLOOD COUNT 4.25 x10e6/uL (4.3-5.7); RED CELL DISTRIBUTION WIDTH 15.9 % (11.7-14.4)
[2021-02-24 08:21] LABS: ALBUMIN 2.2 g/dL (3.5-5.0); ALBUMIN/GLOBULIN RATIO 0.7 (0.8-2.0); ANION GAP 11.1 mmol/L (8-16); CALCIUM 8.4 mg/dL (8.4-10.2); CREATININE, SERUM 1.07 mg/dL (0.72-1.25); POTASSIUM 5.1 mmol/L (3.5-5.1)
[2021-02-24 08:27] LABS: CREATINE KINASE MB 1.7 ng/mL (0-5.0)
[2021-02-24] MEDS: METOPROLOL SUCCINATE 25 MG TAB XL PO SCH (09:46)
[2021-02-24] MEDS: CEFUROXIME AXETIL 250 MG TAB PO SCH ×2 (09:46→16:33)
[2021-02-24] MEDS: AMIODARONE HCL 200 MG TAB PO SCH (09:46)
[2021-02-24] MEDS: RIVAROXABAN 15 MG TABLET PO SCH (09:46)
[2021-02-24] MEDS: FUROSEMIDE 20 MG TAB PO SCH (09:46)
[2021-02-24] MEDS ORDERED: MIRTAZAPINE 15 MG TAB PO SCH (21:00)
[2021-02-24] MEDS: BENZONATATE 100 MG CAP PO SCH (23:02)
[2021-02-25 00:36] VITALS: BP 146/76
[2021-02-25] MEDS: SODIUM CHLORIDE 0.9% 1000ML 1,000 ML IV SCH ×2 (00:55→08:07)
[2021-02-25 04:36] VITALS: BP 134/78
[2021-02-25 05:00] LABS: BASOPHILS # (AUTO) 0.1 (0.0-0.1); BASOPHILS % 0.5 % (0.0-1.0); EOSINOPHILS # (AUTO) 0.3 (0.0-0.4); HEMATOCRIT 35.3 % (38.2-49.6); HEMOGLOBIN 11.2 g/dL (14.0-18.0); LYMPHOCYTES # (AUTO) 0.8 (1.0-3.2); LYMPHOCYTES % 7.3 % (18.0-39.1); MEAN CORPUSCULAR HEMOGLOBIN 28.1 pg (28-32); MEAN CORPUSCULAR HGB CONC 31.7 g/dL (31-35); MEAN CORPUSCULAR VOLUME 88.7 fL (81-99); MONOCYTES # (AUTO) 0.7 (0.2-0.8); MONOCYTES % 6.5 % (4.4-11.3); NEUTROPHILS # (AUTO) 8.6 (2.1-6.9); NEUTROPHILS % 79.6 % (38.7-80.0); PLATELET COUNT 162 x10e3/uL (140-360); RED BLOOD COUNT 3.98 x10e6/uL (4.3-5.7); RED CELL DISTRIBUTION WIDTH 15.9 % (11.7-14.4)
[2021-02-25 05:22] LABS: ALBUMIN 2.2 g/dL (3.5-5.0); ALBUMIN/GLOBULIN RATIO 0.7 (0.8-2.0); ANION GAP 10.4 mmol/L (8-16); CALCIUM 7.7 mg/dL (8.4-10.2); CREATININE, SERUM 1.25 mg/dL (0.72-1.25); POTASSIUM 4.4 mmol/L (3.5-5.1)
[2021-02-25 05:55] LABS: CHOL/HDL RATIO 4.9 (3.9-4.7)
[2021-02-25] MEDS: BENZONATATE 100 MG CAP PO SCH ×2 (06:34→13:00)
[2021-02-25 08:00] VITALS: BP 118/90
[2021-02-25] MEDS: AMIODARONE HCL 200 MG TAB PO SCH (08:07)
[2021-02-25] MEDS: CEFUROXIME AXETIL 250 MG TAB PO SCH (08:07)
[2021-02-25] MEDS: RIVAROXABAN 15 MG TABLET PO SCH (08:07)
[2021-02-25] MEDS: FUROSEMIDE 20 MG TAB PO SCH (08:07)
[2021-02-25] MEDS: METOPROLOL SUCCINATE 25 MG TAB XL PO SCH (08:53)
[2021-02-25 09:00] VITALS: BP 127/85
[2021-02-25] MEDS ORDERED: ASPIRIN 81 MG CHEW TAB PO SCH (09:00)
[2021-02-25 12:00] VITALS: BP 134/60
[2021-02-25] MEDS ORDERED: METOPROLOL SUCCINATE 25 MG TAB XL PO ONE (14:30)
[2021-02-25 16:00] VITALS: BP 120/73
[2021-02-26] MEDS ORDERED: METOPROLOL SUCCINATE 50 MG TAB XL PO SCH (09:00)
== END 2021-02-25 20:00 ==
LOC: ER 00:53 → ERHOLD 01:40 → IMCU 09:12
PROVIDERS: ADMIT Internal Medicine; ATTEND Internal Medicine
DX: I13.0 Hypertensive heart and chronic kidney disease with heart failure and stage 1 through stage 4 chronic kidney disease, or unspecified chronic kidney disease (principal); I25.110 Atherosclerotic heart disease of native coronary artery with unstable angina pectoris; I10 Essential (primary) hypertension; I11.0 Hypertensive heart disease with heart failure; I50.22 Chronic systolic (congestive) heart failure; N18.9 Chronic kidney disease, unspecified; Z86.16 Personal history of COVID-19; E87.5 Hyperkalemia; R05.3 Chronic cough; I50.23 Acute on chronic systolic (congestive) heart failure; I48.91 Unspecified atrial fibrillation; Z79.01 Long term (current) use of anticoagulants
CPT/HCPCS: 36415 ×2; 71045; 80053 ×2; 80061; 82550; 82553; 83880; 84484; 85025 ×2; 93005; 99285; G0378 ×2; J0610; J7030 ×2; J7050; U0002